=== PATIENT | male | born 1985 | race Caucasian/White ===

== ENCOUNTER 2021-12-16 18:46 | Emergency (ER) | payer OTHER, SELFPAY ==
[~2021-12-16] VITALS: Ht 167.6 cm; Wt 74.5 kg
[2021-12-16 18:46] VITALS: BP 142/95
[2021-12-16] MEDS ORDERED: SUBO8MIS (18:55)
== END 2021-12-16 19:50 | disposition left against medical advice (07) ==
LOC: M ED 18:46
DX: Z53.29 Procedure and treatment not carried out because of patient's decision for other reasons (principal)